=== PATIENT | female | born 1990 | race Caucasian/White ===

== ENCOUNTER 2025-01-10 11:38 | Inpatient (IN) | payer OTHER, SELFPAY ==
[2025-01-10 11:52] VITALS: BP 103/70; PULSE 110; RESP 17; TEMP 37.4; O2SAT 97; BMI 37.8
--- NOTE | 2025-01-10 12:06 | PC.PHAR ---
patient is non compliant with her medications, hasnt taken in 3 or more weeks
[2025-01-10 12:08] LABS: Basophils # 0.1 10^3/uL (0.0-0.1); Basophils % 0.5 %; Eosinophils # 0.3 10^3/uL (0.0-0.8); Eosinophils % 2.7 %; Hematocrit 47.7 % (36-47); Lymphocytes # 2.9 10^3/uL (0.8-4.8); Lymphocytes % 29.1 %; Mean Corpuscular HGB Conc 32.3 g/dL (30-55); Mean Corpuscular Volume 89.8 fl (85-98); Mean Platelet Volume 11.1 fL (7.4-10.4); Monocytes # 0.7 10^3/uL (0.2-0.9); Monocytes % 6.7 %; Neutrophils # 6.11 10^3/uL (1.8-7.7); Neutrophils % 60.8 %; Nucleated Red Blood Cells % 0 %; Platelet Count 347 10^3/cmm (157-399); Red Blood Count 5.31 10^6/uL (3.85-5.65); Red Cell Distribution Width 13.1 % (12.1-15.1); White Blood Count 10.04 10^3/uL (3.29-11.43)
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
[2025-01-10 12:32] LABS: Amphetamines Screen Urine Negative (Negative); Barbiturates Screen Urine Negative (Negative); Benzodiazepines Screen Urine Negative (Negative); Cocaine Screen Urine Negative (Negative); Opiate Screen Urine Negative (Negative); PCP Screen Urine Negative (Negative); THC Screen Urine Negative (Negative)
[2025-01-10 12:36] LABS: HCG Qualitative Urine. Negative (Negative)
[2025-01-10 12:44] LABS: Alanine Aminotransferase 53 U/L (0-33); Albumin Level 4.1 g/dL (3.5-5.2); Alkaline Phosphatase 83 U/L (35-105); Aspartate Amino Transferase 34 U/L (0-32); Blood Urea Nitrogen 7 mg/dL (6-20); Calcium 9.8 mg/dL (8.5-10.5); Carbon Dioxide 21 mmol/L (22-29); Chloride 107 mmol/L (98-107); Creatinine Clr Calc Pharmacy 180.3247; Globulin 3.3 g/dL (1.3-4.6); Glomerular Filtration Rate 140.4 mL/min (90-130); Glucose 107 mg/dL (65-115); Osmolality Calculated 290 mOsm/kg (285-295); Sodium 141 mmol/L (136-145); Thyroid Stimulating Hormone 0.93 uIU/mL (0.27-4.20); Total Bilirubin 0.3 mg/dL (0.15-1.2); Total Protein 7.4 g/dL (6.6-8.7)
[2025-01-10 12:45] LABS: Acetaminophen < 5.0 ug/mL (10-30); Alcohol Level < 10 mg/dL (0-10); Salicylate < 0.3 mg/dL (3-10)
[2025-01-10 12:51] LABS: Bilirubin Urine Negative (Negative); Blood Urine Negative (Negative); Glucose Urine UA Negative (Normal); Ketones Urine Negative (Negative); Leukocyte Esterase Urine 2+ (Negative); Nitrate Urine Negative (Negative); Protein Urine Negative (Negative); Specific Gravity, Urine 1.011 (1.005-1.030); Urine Appearance Clear (CLEAR); Urine Color Yellow (Yellow); Urobilinogen Urine 0.2 mg/dL (Negative); pH Urine 6.5 (5-7)
[2025-01-10 12:54] LABS: Bacteria Urine None Seen /hpf; RBC Urine 0-2 /hpf (0-2); Squamous Epithelial Cell Urine 0-5 /hpf (0-5); WBC Urine 21-50 /hpf (0-5)
[2025-01-10 13:06] LABS: Add Urine Culture? Yes
--- NOTE | 2025-01-10 13:57 | ECG_ITS ---
[facility] Test Date: 2025-01-10 Pat Name: Belle Castillo Department: Room: ED Gender: Female Claim Review Medical Director: : 1990 Requested By: Cyndee Baldwin Order Number: [id number] Del Rosario Taylor MD: Nomi Kelley M.D. Measurements Intervals [place] Rate: 105 P: 41 VT: 127 QRS: 57 QRSD: 80 T: 38 QT: 316 QTc: 419 Interpretive Statements SINUS TACHYCARDIA No previous ECG available for comparison Electronically Signed On 01-11-2025 18:01:42 EDIPHONE OPERATOR by Nomi Kelley M.D. [email or web address]
[2025-01-10] MEDS: cephALEXin 500 mg Capsule PO (14:02)
--- NOTE | 2025-01-10 14:31 | PC.NURSE ---
96 hr rights reviewed with pt @2078 with assistance of [facility] security installation technician Luis. All education reviewed with patient. Pt copy left @bedside with pt. No further needs verbalized at this time.
[2025-01-10 14:59] VITALS: BP 117/78; PULSE 118; RESP 16; O2SAT 96
[2025-01-10] MEDS: LORazepam 1 mg Tablet PO (15:01)
[2025-01-10] MEDS: calcium carbonate 500 mg Chew Tablet 1000 MG PO (15:02)
[2025-01-10 17:23] VITALS: BP 117/72; PULSE 108; O2SAT 99
[2025-01-10 17:53] VITALS: BP 118/87; PULSE 126; RESP 16; TEMP 37.3; O2SAT 97
[2025-01-10] MEDS: acetaminophen 325 mg Tablet 650 MG PO (18:34)
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
[2025-01-10 20:49] VITALS: BP 132/92; PULSE 108; RESP 16; TEMP 36.8; O2SAT 96
[2025-01-11 06:00] VITALS: BP 99/79; PULSE 109; RESP 16; O2SAT 94
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
--- OUTSIDE RECORDS SUMMARY | 2025-01-11 08:20 | XMS_ITS | Continuity of Care Document ---
Author Organization [facility] Address [address] [place] [address] Phone Care Team Providers Care Drug Abuse Technician Name Role Phone Nas Gentile MD Unavailable Unavailable Procedures Procedure Date OFFICE/OUTPATIENT VISIT, EST Advance Directives Directive Yes / No Effective Date File Name No Information Encounters Encounter Description Practice Location Reason(s) For Visit Diagnoses Date Provider Providers Copied on Encounter OFFICE/OUTPAT IENT VISIT, EST [facility], [address], [place], [place], [id number], tel:[phone] [facility] No Information [facility]. [address], [address], [place], [place], [id number]. tel:[phone] Referring Provider: Nas Wilson, [address], [place], [address] . tel:[phone] Family History Family Member Type Diagnosis Age At Onset No Information Payers Payer name Insurance type Covered republican ID Authoriza tion(s) [employer] HMO [id number] Social History Type Description Quantity Date Captured Comments Sex Female Smoking Status No Information Chief Complaint And Reason For Visit No Information Reason For Referral Reason For Referral No Information History Of Present Illness Encounter Date Complaint History Of Prese nt Illness No Information Functional Status Date Functional Assessmen t No Information Instructions Date Instruction Additional Infor mation No Information Assessments Type Assessment Date No Information Patient Care Teams Name Effective Dates (start - stop) Status Members No Information
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
[2025-01-11 13:59] VITALS: BP 100/71; PULSE 118; RESP 17; TEMP 36.4; O2SAT 97
[2025-01-11] MEDS: OLANZapine 5 mg ODT PO (14:29)
--- NOTE | 2025-01-11 18:25 | PC.NURSE ---
called and spoke with diploma pharmacy technician at [facility] AT [phone] in [place] [phone] current medication dispensed on following days 12/09/24 naproxen 500mg bid, Buspar 10mg daily, ceterizine 10mg daily, Vraylar 3mg daily, 11/25/24 dicyclomine 20mg tid,Bupropion SR 150mg daily,10/24/24 phentermine 37.5mg daily supply.
[2025-01-11 20:58] VITALS: BP 112/78; PULSE 92; RESP 16; O2SAT 97
[2025-01-12 06:00] VITALS: BP 114/85; PULSE 114; RESP 22; TEMP 36.6; O2SAT 96; BMI 37.8
[2025-01-12] MEDS: acetaminophen 325 mg Tablet 650 MG PO (06:51)
--- NOTE | 2025-01-12 06:52 | PC.NURSE ---
Pt reports a headache, given tylenol 650mg PO, tolerated well.
[2025-01-12] MEDS: hyDROXYzine 25 mg Capsule 50 MG PO (07:46)
[2025-01-12] MEDS: dicyclomine 20 mg Tablet PO ×3 (08:34→21:00)
[2025-01-12 14:00] VITALS: BP 104/72; PULSE 119; RESP 18; TEMP 36.8; O2SAT 95
--- NOTE | 2025-01-12 15:13 | P.NPUPN_ITS ---
Subjective NPU 2 Subjective: 34-year-old female with a history of a h earing disorder, along with a history of mood instability and psychosis admitted with increased confusion and reports of increased agitation. The patient had reported that her ex-boyfriend had convinced her to come to [place] and it convinced her to stop taking her medication. She reports that she had stopped all of her medications more than a week ago. She reports that she does not have a legal guardian and states that she has been taking care of herself with the help of her mother. She reports a past history of having thoughts of hurting herself but stated that she did not feel that way currently. She had stated that it was a misunderstanding. The patient reported no feelings of hopelessness or worthlessness. Mental Status Exam 2 MSE Comments: This is an obese white female in hospital scrubs with poor grooming and limited eye contact and significant acne on his face. No abnormal movements except for psychomotor retardation. She was cooperative with exam in mild distress. Speech was decreased in rate and volume and limited with significant dysarthria significant with history of being hard of hearing versus deaf. Mood described as okay. Her affect was flat today. Thought process was linear. Thought content: Patient denied any suicidal or homicidal ideation at this moment but she did report having made the statements that led to concerns about lethality, there were no delusions reported or noted, she denies any auditory or visual hallucinations. Attention and concentration are limited and memory is somewhat unreliable but none were formally tested. Her recent and remote memory were poor. She is alert and oriented x person and place but not time, day of week. Insight, judgment and impulse control are all impaired. Intellectual ability is commensurate with mild cognitive impairment. Vitals/I&O/Wt Last Vital Signs Temp 98.3 F 01/12/25 14:00 Pulse 119 H 01/12/25 14:00 Resp 18 01/12/25 14:00 BP 104/72 01/12/25 14:00 Pulse Ox 95 01/12/25 14:00 O2 Del Method Room Air 01/12/25 06:00 Weight last 48 hrs Weight 99.847 kg Data NPU 01/10/25 12:00 01/10/25 12:00 Micro: Microbiology 01/10/25 12:10 Urine Culture - Final Urine,Clean Catch Microbiology 03/07/25 12:10 Urine,Clean Catch Urine Culture - Final A&P Assessment and plan (1) Impulse control disorder, unspecified: (2) Depression: (3) Suicidal ideation: (4) Medical non-compliance: (5) Intellectual disability: (6) Poor impulse control: (7) Hard of hearing: Plan This is a 34-year-old white female with history of intellectual disability and significant mental health problems who presented as a very poor historian only able to give some idea of what was going on. Collateral information from mother identified that the reason that she had this period of time off her medication leading to this hospitalization was at least in part due to to meeting someone online and deciding to run off with them and discontinue her medication about 3-1/2 weeks ago. She is open to restarting her medication and mother is hopeful we could assist her in getting back home. 1. Restart Wellbutrin xl 150mg in am, will order and restare Vraylar when it comes available. 2. Encourage individual, group and milieu therapy. 3. Continue to 15-minute checks for safety. 4. Encourage sober living treatment after discharge at the highest level care to which she is willing to commit. 5. Obtain collateral information. Treatment team was able to speak with mother. 6. Evaluate against the backdrop of the 96-hour hold. PDMP PDMP Reviewed: Not Reviewed Involuntary Hold Information 2 Hold Status: Legal Status: 96 Hour Hold Date/Time Hold Expires: 0 01/16/25@1215 Attestations NPU 2 Medical Necessity Statement*: Inpatient hospitalization is medically necessary and the clinically appropriate intervention at this time. We will monitor medications and make changes as indicated. Likely length of stay 3-5 days. Coding Level of Care Code Acute Code for [facility] Fwd Diagnoses Impulse control disorder, unspecified F63.9 Depression F32.A Suicidal ideation R45.851 Medical non-compliance Z91.199 Intellectual disability F79 Poor impulse control R45.87 Hard of hearing H91.90
--- NOTE | 2025-01-12 16:57 | PC.NURSE ---
Pt. awake the majority of the shift. Pt. had trouble hearing her mom on the phone today. Pt. spoke to her mother several times this shift. Mother stated to signee that when pt. is to be DC'd her agent would fly from [place] to get pt. and take her back to [place].
[2025-01-12] MEDS: buPROPion XL (24 HR) 150 mg Tablet PO (17:16)
[2025-01-12 20:12] VITALS: BP 101/61; PULSE 99; RESP 16; TEMP 37.1; O2SAT 95
[2025-01-13 06:00] VITALS: BP 116/83; PULSE 105; RESP 18; TEMP 37.2; O2SAT 99
[2025-01-13] MEDS: dicyclomine 20 mg Tablet PO ×3 (08:29→19:45)
[2025-01-13] MEDS: buPROPion XL (24 HR) 150 mg Tablet PO (08:29)
[2025-01-13 14:00] VITALS: BP 84/54; PULSE 120; RESP 16; TEMP -12.7; TEMP 9.2; O2SAT 100
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
[2025-01-13] MEDS: VRAYLAR 3 MG 1 EACH PO (15:07)
[2025-01-13 20:02] VITALS: BP 117/76; PULSE 116; RESP 17; TEMP 36.7; O2SAT 98
[2025-01-14 06:00] VITALS: BP 104/67; PULSE 100; RESP 17; TEMP 36.9; O2SAT 97
[2025-01-14] MEDS: buPROPion XL (24 HR) 150 mg Tablet PO (07:43)
[2025-01-14] MEDS: dicyclomine 20 mg Tablet PO ×2 (07:43→16:10)
[2025-01-14] MEDS: VRAYLAR 3 MG 1 EACH PO (07:44)
[2025-01-14] MEDS: calcium carbonate 500 mg Chew Tablet 1000 MG PO (08:34)
[2025-01-14] MEDS: hyDROXYzine 25 mg Capsule 50 MG PO (11:31)
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
[2025-01-14 13:01] VITALS: BP 104/67; PULSE 100; RESP 17; TEMP 36.9; O2SAT 97
[2025-01-14 14:00] VITALS: BP 110/73; PULSE 108; RESP 17; TEMP 37.5; O2SAT 97
--- NOTE | 2025-01-14 15:23 | PC.NURSE ---
called [facility] pharmacy for meds to bed prescription from Dr. Bautista for. vistarill 25mg one tab po q 6hours prn 30 day supply quantity 30.
[2025-01-14] MEDS: OLANZapine 5 mg ODT PO (16:12)
== END 2025-01-14 17:56 | disposition home or self-care (01) | DRG 881 ==
LOC: ER 13:01 → NP 17:37 → ER IP 01-11 08:18
PROVIDERS: Admitting Provider Psychiatry & Neurology Psychiatry; Emergency Provider Emergency Medicine; Visit Provider Psychiatry & Neurology Psychiatry
DX: F32.A Depression, unspecified (principal); R45.851 Suicidal ideations; F79 Unspecified intellectual disabilities; R45.87 Impulsiveness; H91.90 Unspecified hearing loss, unspecified ear; T50.916A Underdosing of multiple unspecified drugs, medicaments and biological substances, initial encounter; E66.9 Obesity, unspecified; Z68.37 Body mass index [BMI] 37.0-37.9, adult
CPT/HCPCS: 36415; 80053; 80306; 80307; 81001; 81025; 84443; 85025; 87086; 93005; 97150; 97166; 99285; J9999